=== PATIENT | male | born 1985 | race Caucasian/White ===

== ENCOUNTER 2017-07-10 13:39 | Emergency (ER) | payer OTHER ==
[2017-07-10 13:58] VITALS: BP 142/86
--- NOTE | 2017-07-10 14:01 | ED Physician Documentation ---
PD HPI UPPER EXT INJURY - Stated complaint Stated Complaint: R HAND INJURY - Chief complaint Chief Complaint: Ext Problem - History obtained from History obtained from: Patient - History of Present Illness Location: Right, Hand Type of injury: Blunt / blow (He was upset and punched something yesterday and complains of pain mostly proximal to the fifth finger.) Review of Systems Constitutional: reports: Reviewed and negative Throat: reports: Reviewed and negative Cardiac: reports: Reviewed and negative PD PAST MEDICAL HISTORY - Present Medications Home Medications: Ambulatory Orders Medication Instructions Recorded Confirmed No Known Home Medications [No 07/10/17 07/10/17 Known Home Medications] - Allergies Allergies/Adverse Reactions: Allergies Allergy/AdvReac Type Severity Reaction Status Date / Time No Known Drug Allergies Allergy Verified 07/10/17 13:54 PD ED PE NORMAL - Vitals Vital signs reviewed: Yes - General General: Alert and oriented X 3, No acute distress - Extremities Extremities: Other (Right hand is tender and swollen dorsally especially over the fifth metacarpal and less of the fourth metacarpal. No limited range of motion or loss of saccade.) - Neuro Neuro: Alert and oriented X 3, Normal speech - Psych Psych: Normal mood, Normal affect Results - Vitals Vitals: Vital Signs - 24 hr 07/10/17 13:52 Heart Rate 84 Respiratory 16 Rate Blood Pressure 142/86 H O2 Saturation 100 Oxygen O2 Source Room air - Rads (name of study) R hand Radiology: EMP read contemporaneously (Fourth metacarpal fracture) Procedures - Splint (location) Right hand Splint applied by: Physician Type of splint: Fiberglass, Short arm, Ulnar gutter Other: Patient tolerated well, No complications, Neurovascular intact - Reduction Body part reduced: Right, Metacarpal Fracture or dislocation: Fracture dislocation Anesthesia: Hematoma block, Lidocaine (enter cc) (5ml) Reduction aftercare: NV intact, Alignment improved Departure - Departure Disposition: 01 Home, Self Care Clinical Impression: Closed fracture of 5th metacarpal Qualifiers: Encounter type: initial encounter Metacarpal location: shaft Fracture alignment : displaced Laterality: right Qualified Code(s): S62.326A - Displaced fracture of shaft of fifth metacarpal bone, right hand, initial encounter for closed fracture Condition: Good Record reviewed to determine appropriate education?: Yes Instructions: ED Fx Hand Closed Comments: Keep the splint on and dry, [place] of your x-rays on CD. Tylenol as needed for pain.
[2017-07-10] MEDS ORDERED: LIDOCAINE 2% 10 ML MDV ONE (14:11)
--- NOTE | 2017-07-10 14:32 | XRAY Preliminary Report ---
Exam: XR Hand 3 View RT IMPRESSION: Boxers type fracture fifth metacarpal with palmar displacement and angulation. [facility] SITE ID: [id number]
--- NOTE | 2017-07-10 14:35 | XRAY Report ---
EXAM: RIGHT HAND RADIOGRAPHY EXAM DATE: 07/10/2017 02:10 PM. CLINICAL HISTORY: Pain and swelling, punched a sign. COMPARISON: None. TECHNIQUE: 3 views. FINDINGS: Bones: There is a boxers type fracture of the fifth metacarpal with palmar displacement of 2 mm and p almar angulation of 28 degrees. Joints: Normal. No subluxations. Soft Tissues: Moderate soft tissue swelling. IMPRESSION: Boxers type fracture fifth metacarpal with palmar displacement and angulation. [facility] Referring Provider Line: [phone] SITE ID: [id number]
== END 2017-07-10 14:22 | disposition home or self-care (01) ==
LOC: ED 13:39
DX: S62.326A Displaced fracture of shaft of fifth metacarpal bone, right hand, initial encounter for closed fracture (principal); W22.09XA Striking against other stationary object, initial encounter
CPT/HCPCS: 26605; 29125; 99283